=== PATIENT | female | born 1985 ===

== ENCOUNTER 2022-02-22 04:53 | Emergency (ER) | payer SELFPAY ==
[2022-02-22] MEDS ORDERED: Ibuprofen 800 MG TAB ONE (05:21)
[2022-02-22] MEDS ORDERED: Acetaminophen 500 MG TAB ONE (05:21)
== END 2022-02-22 07:27 | disposition home or self-care (01) ==
LOC: ERS 04:53
DX: J06.9 Acute upper respiratory infection, unspecified (principal)
CPT/HCPCS: 87804; 99283

== ENCOUNTER 2024-03-09 14:09 | Emergency (ER) | payer BC, OTHER ==
[2024-03-09] MEDS ORDERED: Ketorolac Tromethamine 30 MG (1 mL) VIAL ONE (16:14)
== END 2024-03-09 16:45 | disposition home or self-care (01) ==
LOC: ERS 14:09
DX: S09.90XA Unspecified injury of head, initial encounter (principal); S39.012A Strain of muscle, fascia and tendon of lower back, initial encounter; R51.9 Headache, unspecified; V89.2XXA Person injured in unspecified motor-vehicle accident, traffic, initial encounter
CPT/HCPCS: 70450; 72100; 96372; J1885